=== PATIENT | male | born 1985 | race Caucasian/White ===

== ENCOUNTER 2016-07-27 14:04 | Emergency (ER) | payer OTHER ==
[~2016-07-27] VITALS: Ht 175.3 cm; Wt 79.5 kg
[2016-07-27 14:11] VITALS: BP 143/83
== END 2016-07-27 16:05 | disposition home or self-care (01) ==
LOC: ED 14:04
DX: M54.12 Radiculopathy, cervical region (principal); I10 Essential (primary) hypertension; Z88.1 Allergy status to other antibiotic agents

== ENCOUNTER 2016-11-07 17:16 | Emergency (ER) | payer OTHER ==
[~2016-11-07] VITALS: Ht 175.3 cm; Wt 78.9 kg
[2016-11-07 17:30] VITALS: BP 153/87
== END 2016-11-07 18:25 | disposition home or self-care (01) ==
LOC: ED 17:16
DX: H10.211 Acute toxic conjunctivitis, right eye (principal); I10 Essential (primary) hypertension